=== PATIENT | male | born 1995 | race Two or more races ===

== ENCOUNTER 2020-07-12 15:03 | Emergency (ER) | payer SELFPAY ==
[~2020-07-12] VITALS: Ht 177.8 cm; Wt 79.4 kg
[2020-07-12 16:00] VITALS: BP 112/79
[2020-07-12] MEDS ORDERED: LIDOCAINE 2%HCL (LOCAL ANESTH.) INJ 20ML MDV ID ONE (16:00)
[2020-07-12] MEDS ORDERED: NEOMYCIN-BACITRACIN-POLYM UNITDOSE PKG TOP OINT TOP ONE (16:00)
== END 2020-07-12 17:00 | disposition home or self-care (01) ==
LOC: ER 15:03
DX: S68.012A Complete traumatic metacarpophalangeal amputation of left thumb, initial encounter (principal); S61.217A Laceration without foreign body of left little finger without damage to nail, initial encounter; S62.522B Displaced fracture of distal phalanx of left thumb, initial encounter for open fracture; X58.XXXA Exposure to other specified factors, initial encounter; Y93.89 Activity, other specified; Y92.89 Other specified places as the place of occurrence of the external cause; Y99.8 Other external cause status
CPT/HCPCS: 12002; 73140